=== PATIENT | female | born 1950 | race Asian ===

== ENCOUNTER 2017-07-26 10:25 | Inpatient (IN) | payer OTHER ==
[~2017-07-26] VITALS: Ht 152.4 cm; Wt 56.0 kg
[2017-07-26 11:11] LABS: BASOPHIL % 0.7 % (0-2); PLATELET COUNT 264 x10^3mcL (130-400); RED CELL DISTRIBUTION WIDTH 13.3 % (11.5-14.5)
[2017-07-26 11:22] LABS: CALCIUM 9.1 mg/dL (8.5-10.1); CARBON DIOXIDE 30.6 mmol/L (21-32); CHLORIDE SERUM 104 mmol/L (98-107); CREATININE SERUM 0.6 mg/dL (0.6-1.0); GFR1 > 60 mL/min; GLUCOSE SERUM 117 mg/dL (74-106); POTASSIUM SERUM 4.3 mmol/L (3.5-5.1); SODIUM SERUM 141 mmol/L (136-145)
[2017-07-26 11:26] LABS: ALKALINE PHOSPHATASE 128 U/L (46-116); ALT/SGPT 29 U/L (14-59); AST/SGOT 21 U/L (15-37); BILIRUBIN TOTAL 0.4 mg/dL (0.20-1.00)
[2017-07-26 11:31] LABS: TOTAL PROTEIN, SERUM 8.3 g/dL (6.4-8.2)
[2017-07-26 12:35] LABS: CHOLESTEROL/HDL RATIO 5.4; MAGNESIUM 2.1 mg/dL (1.8-2.4); PHOSPHOROUS 2.8 mg/dL (2.5-4.9)
[2017-07-26 12:43] LABS: FREE T4 0.97 ng/dL (0.76-1.46); FREE THYROXINE INDEX 3.3 ug/dL (1.4-4.5); T4(THYROXINE) 9.3 ug/dL (4.7-13.3)
[2017-07-26 12:46] LABS: T3 TOTAL 0.91 ng/mL
[2017-07-26] MEDS ORDERED: PLA75 PO (12:49)
[2017-07-26] MEDS ORDERED: METFORMIN HYDR500 M1 PO (12:49)
[2017-07-26] MEDS ORDERED: ULTRAM50 MG PO (12:52)
[2017-07-26] MEDS ORDERED: GLUCOTROL5 MG PO (12:58)
[2017-07-26] MEDS ORDERED: METFORMIN HCL500 MG PO (12:58)
[2017-07-26 14:09] VITALS: BP 137/78
[2017-07-26 14:34] VITALS: BP 137/78
[2017-07-26 15:19] LABS: UA SPECIFIC GRAVITY <=1.005 (1.005-1.035); microscopic required? YES; urine erythrocyte TRACE (NEGATIVE)
[2017-07-26 15:29] LABS: AMPHETAMINE QUAL UR NONE DETECTED (NEG <=1000)
[2017-07-26 17:37] VITALS: BP 138/71
[2017-07-26 21:06] VITALS: BP 123/74
[2017-07-27 05:34] VITALS: BP 101/53
[2017-07-27 06:25] LABS: BASOPHIL % 0.6 % (0-2); PLATELET COUNT 256 x10^3mcL (130-400); RED CELL DISTRIBUTION WIDTH 13.3 % (11.5-14.5)
[2017-07-27 06:51] LABS: CARBON DIOXIDE 27.7 mmol/L (21-32); CHLORIDE SERUM 106 mmol/L (98-107); CREATININE SERUM 0.6 mg/dL (0.6-1.0); GFR1 > 60 mL/min; GLUCOSE SERUM 103 mg/dL (74-106); SODIUM SERUM 142 mmol/L (136-145)
[2017-07-27 10:44] VITALS: BP 123/79
[2017-07-27 15:30] VITALS: BP 116/70
[2017-07-27 17:46] VITALS: BP 108/71
[2017-07-27 18:15] VITALS: BP 123/75
[2017-07-27 20:42] VITALS: BP 101/64
[2017-07-28 05:24] VITALS: BP 112/65
[2017-07-28 06:22] LABS: BASOPHIL % 0.3 % (0-2); RED CELL DISTRIBUTION WIDTH 13.2 % (11.5-14.5)
[2017-07-28 06:48] LABS: CALCIUM 9.4 mg/dL (8.5-10.1); CARBON DIOXIDE 30.2 mmol/L (21-32); CHLORIDE SERUM 103 mmol/L (98-107); CREATININE SERUM 0.7 mg/dL (0.6-1.0); GFR1 > 60 mL/min; GLUCOSE SERUM 96 mg/dL (74-106); MAGNESIUM 1.6 mg/dL (1.8-2.4); PHOSPHOROUS 4.1 mg/dL (2.5-4.9); POTASSIUM SERUM 4.7 mmol/L (3.5-5.1); SODIUM SERUM 140 mmol/L (136-145)
[2017-07-28] MEDS ORDERED: LIPI10 PO (07:28)
[2017-07-28] MEDS ORDERED: ZES10 PO (07:29)
[2017-07-28] MEDS ORDERED: ECO81 PO (07:29)
[2017-07-28 07:59] LABS: PLATELET COUNT 240 x10^3mcL (130-400)
[2017-07-28 09:54] VITALS: BP 110/62
[2017-07-28 11:29] VITALS: BP 110/62
[2017-07-28 13:56] VITALS: BP 128/69
== END 2017-07-28 15:24 | disposition home or self-care (01) | DRG 47 ==
LOC: ED 10:25 → UNDODEPER 11:40 → DU 11:49
PROVIDERS: Emergency Medicine; ADMIT Family Medicine
DX: G45.9 Transient cerebral ischemic attack, unspecified (principal); N17.0 Acute kidney failure with tubular necrosis; G90.9 Disorder of the autonomic nervous system, unspecified; I16.0 Hypertensive urgency; M54.5 Low back pain; E78.5 Hyperlipidemia, unspecified; Z79.84 Long term (current) use of oral hypoglycemic drugs; Z86.73 Personal history of transient ischemic attack (TIA), and cerebral infarction without residual deficits; E11.9 Type 2 diabetes mellitus without complications
CPT/HCPCS: 82962; 83880; 84439; 85378; 90658; J3475; J7030; Q0092